=== PATIENT | male | born 1975 | race Caucasian/White ===

== ENCOUNTER 2024-02-21 10:28 | Emergency (ER) | payer SELFPAY ==
[2024-02-21 10:43] VITALS: BP 162/99
[2024-02-21] MEDS: MOTRIN 600 MG PO (12:42)
[2024-02-21] MEDS: AUGMENTIN 875 MG/125 MG 1 TABLET PO (12:42)
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
[2024-02-21] MEDS: ADACEL 0.5 ML IM (13:07)
== END 2024-02-21 13:19 | disposition home or self-care (01) ==
LOC: EMR 10:28
PROVIDERS: EMERGENCY PHYSICIAN Emergency Medicine; FAMILY PHYSICIAN Family Medicine
DX: S61.451A Open bite of right hand, initial encounter (principal); Y04.1XXA Assault by human bite, initial encounter; I10 Essential (primary) hypertension; Y99.0 Civilian activity done for income or pay; F17.200 Nicotine dependence, unspecified, uncomplicated; Z23 Encounter for immunization
CPT/HCPCS: 99283; 90471; 73130; 90715